=== PATIENT | male | born 1955 | race Caucasian/White ===

== ENCOUNTER → 2019-02-25 | Outpatient (CLI) | payer OTHER, SELFPAY ==
[2019-02-25 10:11] LABS: Absolute Neutrophil Count 5.6 X10^3/uL (2.0-7.7); Basophil# 0.04 X10^3/uL; Basophil% 0.5 % (0-1); Eosinophils% 1.2 % (0-5); Hemoglobin 16.5 g/dL (13.0-16.5); Lymphocyte % 23.8 % (19-41); Mean Corp Hgb Conc 33.7 g/dL (32-36); Mean Corpuscular Hgb 31.3 pg (27.0-32.0); Mean Corpuscular Volume 92.8 fL (80-94); Mean Platelet Vol. 10.3 fl (6.2-12.0); Monocyte# 0.67 X10^3/uL; NRBC Flagged by Analyzer 0 % (0-5); Neutrophil # 5.56 X10^3/uL (2.7-7.7); Neutrophil % 66.3 % (47-70); Platelet Count 286 K/mm3 (150-450); Red Blood Count 5.28 M/mm3 (4.6-6.2); White Blood Count 8.4 K/mm3 (4.4-11.0)
[2019-02-25 10:37] LABS: Microalbumin,Random Urine 9.1 mg/L (NO RANGE EST.); Microalbumin:Creatinine Ratio 4.7 mg/g CRE (<30 mg/g CRE)
[2019-02-25 10:50] LABS: ALB/GLOB Ratio 0.9 RATIO (0.9-2.4); AST(SGOT) 29 U/L (15-37); Alanine Aminotransfer ALT/SGPT 27 U/L (16-61); Albumin, Serum 3.9 g/dL (3.2-5.0); Alkaline Phosphatase 83 U/L (45-117); Anion Gap 3 (5-15); BUN 19 mg/dL (7-18); BUN/Creat Ratio 18.8 RATIO (10-20); Chloride 112 mmol/L (98-107); Cholesterol 173 mg/dL (200); Creatinine, Serum 1.01 mg/dL (0.70-1.30); EST Glomerular Filtration Rate 79 mL/min (>60); Est Glom Filt Rate - Afr Amer 95 mL/min (>60); Globulin 4.2 g/dL (2.2-4.2); Glucose 108 mg/dL (74-106); High Density Lipoprotein 44 mg/dL; PSA,Total - Annual Screen 0.48 ng/mL (0.00-4.00); Potassium 4.4 mmol/L (3.5-5.1); Protein, Total 8.1 g/dL (6.4-8.2); Sodium Level 138 mmol/L (136-145); Triglycerides 94 mg/dL; Very Low Density Lipoprotein 19 mg/dL (5-40)
[2019-02-28 15:07] LABS: Testosterone, Free 11.04 ng/dL (5.00-21.00)
[2019-03-01 10:14] LABS: Testosterone, % Free 2.61 % (1.50-4.20); Testosterone, Total 423 ng/dL (264-916)
== END | disposition home or self-care (01) ==
LOC: LAB 09:31
PROVIDERS: Family Provider Family Medicine; PCP Family Medicine; Referring Provider Family Medicine; Visit Provider Family Medicine
DX: Z00.00 Encounter for general adult medical examination without abnormal findings (principal); Z12.5 Encounter for screening for malignant neoplasm of prostate; N52.9 Male erectile dysfunction, unspecified; I10 Essential (primary) hypertension
CPT/HCPCS: 36415; 80053; 80061; 82043; 82570; 84153; 84402; 84403; 85025; G0103

== ENCOUNTER 2020-07-04 06:18 | Emergency (ER) | payer MEDICARE, SELFPAY ==
[2020-07-04 06:18] VITALS: BP 152/93; PULSE 92; RESP 18; TEMP 37.1; O2SAT 94; BMI 25.9
--- NOTE | 2020-07-04 06:27 | RAD_ITS ---
STUDY: X-RAY CHEST REASON FOR EXAM: Male, 65 years old patient with cough, fever and nausea for eight days TECHNIQUE: Single AP portable view of the chest. COMPARISON: 02/15/2013. FINDINGS: Cardiac monitoring leads are present. The lungs are underexpanded. There is patchy left basilar airspace consolidation suggesting pneumonia. There are prominent bronchovascular markings in both lungs. There is no demonstrated pleural abnormality. There is borderline cardiomegaly. Normal mediastinum and obdulio. Normal visualized pulmonary arteries. There is atherosclerotic calcification of the aortic arch with tortuosity. There are diffuse degenerative changes of the visualized thoracic spine. Normal visualized ribs, clavicles, and shoulders. There is no demonstrated abnormality of the visualized soft tissue structures of the upper abdomen. RAD/Chest 1 View (Portable) IMPRESSION: Left basilar airspace consolidation suggesting pneumonia. Electronically Signed: Rizwana Hoyos MD at 7:01 EST , Service support ,
--- NOTE | 2020-07-04 06:36 | ED.DCSUM_ITS ---
History of Present Illness Chief Complaint: General Illness Narrative: Patient presenting for evaluation secondary to generalized illness. Patient states that on Friday of this week he started to deal with generalized illness. He states that its been associated with a cough specifically on exertion. He denies any shortness of breath. He denies any productivity to this cough. He has been having subjective fevers, they have been somewhat alleviated by taking aspirin. He states that he has been having myalgias, and most recently developed nausea with vomiting and dry heaves. He denies significant diarrhea. He does reports that he potentially has some sick contacts. Denies any lung disease history. He does have a history of hypertension. Review of systems otherwise negative. Past Medical History - Allergies and Home Meds Allergies/Adverse Reactions: Allergies No Known Allergies Allergy (Verified 07/04/20 06:28) Primary Care Physician: Kenrick Coley DO [Primary Care Provider] - Prior records reviewed: Yes Past Medical History: - - Hypertension Lives: With Family Smoking Status: Never smoker Alcohol: None Drugs: None Review of Systems All systems negative except as indicated General: Reports: Fever, Malaise Eyes: Denies: Visual changes - bilaterally, Diplopia ENT: Denies: Rhinorrhea, Sore throat Cardiovascular: Denies: Chest pain, Palpitations Respiratory: Reports: Cough Gastrointestinal: Reports: Nausea, Vomiting Genitourinary: Denies: Dysuria, Hematuria, Frequency Musculoskeletal: Reports: Myalgias Skin: Denies: Rash, Wounds Neurological: Denies: Headache, Weakness, Numbness Physical Exam Vital Signs/Narrative: Vital Signs Temp Pulse Resp BP Pulse Ox 07/04/20 06:18 98.7 F 92 18 152/93 H 94 Inital Vital Signs reviewed: Yes General: Well nourished, Well developed, No Acute Distress Head: Normocephalic, Atraumatic Eyes: Perrl, EOMI ENT: No rhinorrhea, Dry mucous membranes Neck: Supple, Nontender Cardiovascular: Regular rate, Regular rhythm, No murmurs Respiratory: No distress, CTA bilaterally, Chest nontender, - - Patient is speaking in full sentences no evidence of respiratory discomfort Abdomen: Soft, Nontender, Nondistended, Normal bowel sounds Back: Nontender, Normal Inspection Extremities: Nontender, No edema Skin: Normal color, No rash, - - Skin is slightly hot to the touch Neurological: Alert, Oriented x3, Cranial nerves II-XII grossly intact, Normal Strength, Normal Sensation Psychological: Normal affect, Normal Mood Diagnostic/Tx/Re-eval Chest X-Ray - ED: 1 View, Read by ED Physician Clinical Impression(s) from Imaging Studies Chest X-Ray 07/04/20 06:27 IMPRESSION: Left basilar airspace consolidation suggesting pneumonia. Electronically Signed: Rizwana Hoyos MD at 7:01 EST , Service support , Laboratory Data 07/04/20 07/04/20 06:42 06:42 WBC 7.4 RBC 5.93 Hgb 17.9 H Hct 53.6 MCV 90.4 MCH 30.2 MCHC 33.4 RDW Std Deviation 42.1 RDW Coeff of Lev 12.6 Plt Count 224 MPV 10.0 Immature Gran % (Auto) 0.400 Neut % (Auto) 81.6 H Lymph % (Auto) 11.[address] [place] % (Auto) 6.6 Eos % (Auto) 0.0 Baso % (Auto) 0.3 Absolute Neuts (auto) 6.0 Absolute Lymphs (auto) 0.82 L Nucleated RBC % 0 Sodium 134 L Potassium 3.8 Chloride 105 Carbon Dioxide 21.0 Anion Gap 8 BUN 20 H Creatinine 0.96 Estim Creat Clear Calc 85.54 Est GFR (MDRD) Af Amer 101 Est GFR (MDRD) Non-Af 83 BUN/Creatinine Ratio 20.8 H Glucose 132 H Calcium 8.5 C-React Prot Ext Range 16.20 H - Medical Decision Making Patient presented secondary to generalized illness. He appears clinically dry, IV was established she was given Toradol, and a liter of IV fluids. CBC demonstrates some hemoconcentration with elevation of the patient's hemoglobin. Chemistry not significantly abnormal with normal renal function no significant electrolyte derangements. Mild elevation of the patient's CRP is noted. Chest x-ray 1 view by my personal review shows a left lower lobe infiltrate, this is agreed upon by radiology. Patient's coronavirus testing was noted to be positive. Ambulatory pulse ox shows the patient to only have pulse ox is around 91 to 92%. Patient is nontoxic-appearing, and not dyspneic. Given his unilateral infiltrate I will treat the patient for potential concomitant bacterial pneumonia with azithromycin. Patient meets treatment criteria for monoclonal antibody treatments, he was given referral to the infusion center. He will also be sent home with a course of Zofran to ensure that he stays well-hydrated. Patient understands signs and symptoms which to return. Patient was discharged in stable condition. ED Disposition - Plan for ED Patient: Disposition: Home or Assisted Living Diagnosis: COVID-19, Pneumonia Instructions: COVID-19: Lying in a Prone Position (Proning), Coronavirus Disease 2019 (COVID-19): Caring for Yourself or Others, ED Pneumonia (Adult) Prescriptions: Azithromycin [Zithromax Z-Alberto] 250 mg PO UD #1 box Prescription Printed Ondansetron [Zofran Odt] 4 mg PO Q8H PRN PRN #10 tab PRN Reason: Nausea Prescription Printed Referrals: Kenrick Coley DO [Primary Care Provider] - 1-2 Weeks
[2020-07-04] MEDS: Ondansetron 4 MG/2 ML Vial IV (06:39)
[2020-07-04] MEDS: 0.9% Normal Saline 1,000 ML 1000 ML IV (06:39)
[2020-07-04] MEDS: Ketorolac 15 MG/ML Vial IV (06:41)
[2020-07-04 06:47] LABS: Absolute Lymphocyte Count 0.82 X10^3/uL (0.83-4.51); Basophil# 0.02 X10^3/uL; Basophil% 0.3 % (0-1); Hematocrit 53.6 % (40-54); Hemoglobin 17.9 g/dL (13.0-16.5); Lymphocyte # 0.82 X10^3/ul (4.0); Lymphocyte % 11.1 % (19-41); Mean Corp Hgb Conc 33.4 g/dL (32-36); Mean Corpuscular Hgb 30.2 pg (27.0-32.0); Mean Corpuscular Volume 90.4 fL (80-94); Monocyte# 0.49 X10^3/uL; Monocyte% 6.6 % (0-10); NRBC Flagged by Analyzer 0 % (0-5); Neutrophil # 6.01 X10^3/uL (2.7-7.7); Neutrophil % 81.6 % (47-70); Platelet Count 224 K/mm3 (150-450); RBC Distribution Width CV 12.6 % (11.6-14.6); RBC Distribution Width SD 42.1 fl (35.1-43.9); Red Blood Count 5.93 M/mm3 (4.6-6.2); White Blood Count 7.4 K/mm3 (4.4-11.0)
[2020-07-04 07:07] VITALS: BP 158/86; PULSE 79; RESP 20; TEMP 37.9; O2SAT 94
[2020-07-04 07:08] LABS: Anion Gap 8 (5-15); BUN 20 mg/dL (7-18); BUN/Creat Ratio 20.8 RATIO (10-20); Calcium,Total 8.5 mg/dL (8.5-10.1); Chloride 105 mmol/L (98-107); Creatinine, Serum 0.96 mg/dL (0.70-1.30); EST Glomerular Filtration Rate 83 mL/min (>60); Est Glom Filt Rate - Afr Amer 101 mL/min (>60); Estimated Creatinine Clearance 85.54 ml/min; Glucose 132 mg/dL (74-106); Potassium 3.8 mmol/L (3.5-5.1); Sodium Level 134 mmol/L (136-145)
--- NOTE | 2020-07-04 07:34 | ED.RN ---
advised pt to begin looking for a ride.
[2020-07-04 08:38] VITALS: BP 104/79; PULSE 62; RESP 15; O2SAT 97
== END 2020-07-04 08:39 | disposition home or self-care (01) ==
PROVIDERS: Emergency Provider Emergency Medicine; PCP Family Medicine
DX: U07.1 COVID-19 (principal); J12.89 Other viral pneumonia; I10 Essential (primary) hypertension; Z79.899 Other long term (current) drug therapy
CPT/HCPCS: 36415; 71045; 80048; 85025; 86140; 87426; 96361; 96374; 96375; 99285; J7030; J2405

== ENCOUNTER → 2022-08-27 | Outpatient (CLI) | payer MEDICARE, SELFPAY ==
[2022-08-27 12:28] LABS: Absolute Lymphocyte Count 2.31 X10^3/uL (0.83-4.51); Absolute Neutrophil Count 4.9 X10^3/uL (2.0-7.7); Basophil# 0.06 X10^3/uL; Basophil% 0.7 % (0-1); Eosinophil# 0.24 X10^3/uL; Eosinophils% 2.9 % (0-5); Hematocrit 50.6 % (40-54); Hemoglobin 16.6 g/dL (13.0-16.5); Lymphocyte # 2.31 X10^3/ul (0.83-4.51); Lymphocyte % 28.1 % (19-41); Mean Corp Hgb Conc 32.8 g/dL (32-36); Mean Corpuscular Hgb 30.9 pg (27.0-32.0); Mean Corpuscular Volume 94.2 fL (80-94); Mean Platelet Vol. 11.2 fl (6.2-12.0); Monocyte% 8.5 % (0-10); NRBC Flagged by Analyzer 0 % (0-5); Neutrophil # 4.88 X10^3/uL (2.7-7.7); Neutrophil % 59.3 % (47-70); Platelet Count 284 K/mm3 (150-450); RBC Distribution Width CV 12.9 % (11.6-14.6); RBC Distribution Width SD 44.4 fl (35.1-43.9); Red Blood Count 5.37 M/mm3 (4.6-6.2); White Blood Count 8.2 K/mm3 (4.4-11.0)
[2022-08-27 13:05] LABS: AST(SGOT) 33 U/L (15-37); Alanine Aminotransfer ALT/SGPT 30 U/L (16-61); Albumin, Serum 3.9 g/dL (3.2-5.0); Alkaline Phosphatase 81 U/L (45-117); Anion Gap 8 (5-15); BUN 19 mg/dL (7-18); Calcium,Total 9.4 mg/dL (8.5-10.1); Chloride 109 mmol/L (98-107); Cholesterol 187 mg/dL (200); EST Glomerular Filtration Rate 79 mL/min (>60); Est Glom Filt Rate - Afr Amer 95 mL/min (>60); Globulin 3.8 g/dL (2.2-4.2); Glucose 106 mg/dL (74-106); High Density Lipoprotein 43 mg/dL; PSA,Total - Annual Screen 0.58 ng/mL (0.00-4.00); Potassium 4.5 mmol/L (3.5-5.1); Protein, Total 7.7 g/dL (6.4-8.2); Sodium Level 141 mmol/L (136-145); Triglycerides 132 mg/dL; Very Low Density Lipoprotein 26 mg/dL (5-40)
== END | disposition home or self-care (01) ==
LOC: BFHLAB 10:54
PROVIDERS: PCP Family Medicine; Visit Provider Family Medicine
DX: Z00.00 Encounter for general adult medical examination without abnormal findings (principal); Z12.5 Encounter for screening for malignant neoplasm of prostate; I10 Essential (primary) hypertension
CPT/HCPCS: 36415; 80053; 80061; 84153; 85025; G0103

== ENCOUNTER → 2023-08-28 | Outpatient (CLI) | payer MEDICARE, SELFPAY ==
--- OUTSIDE RECORDS SUMMARY | 2023-08-28 15:32 | XMS RPT_ITS | CCD ---
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 Name Role Phone GABRIEL BARRAGAN Attending Unavailable TEJ KNOWLES Primary Care Unavailable Problems Problem Classification Problem Date Documented Da te Episodic/Chronic Influenza (1 source) Influenza due to unidentified influenza virus with other respiratory manifestations; Translations: [Influenza] Onset: 07-24-2023 Episodic Results Test Name Value Interpretation Reference Range Facil ity Encounters Encounter Date Encounter Type Care Provider Facility Start: 07-24-2023 End: 07-24-2023 Emergency department patient visit GABRIEL BARRAGAN Facility:[facility] Summary Purpose Family History No Family History Records Found Advance Directives No Advanced Directives Records Found Additional Source Comments (unrecognized sect ion and content) No Status Records Found INFORMATION SOURCE (unrecogn ized section and content) FOR RECORDS PERTAINING TO PATIENTS WHO ARE OR HAVE BEEN ENROLLED IN A CHEMICAL DEPENDENCY/SUBSTANCEABUSE PROGRAM, SOME INFORMATION MAY BE OMITTED. This clinical summary was aggregated from multiple sources. Caution should be exercised in using it in the provision of clinical care. This summary normalizes information from multiple sources, and as a consequence, information in this document may materially change the coding, format and clinical context of patient data. In addition, data may be omitted in some cases. CLINICAL DECISIONS SHOULD BE BASED ON THE PRIMARY CLINICAL RECORDS. [email or web address] provides no warranty or guarantee of the accuracy or completeness of information in this document.
[2023-08-28 16:01] LABS: AST(SGOT) 37 U/L (15-37); Alanine Aminotransfer ALT/SGPT 32 U/L (16-61); Alkaline Phosphatase 83 U/L (45-117); Anion Gap 3 (5-15); BUN 16 mg/dL (7-18); Calcium,Total 9.9 mg/dL (8.5-10.1); Chloride 111 mmol/L (98-107); Cholesterol 192 mg/dL (200); EST Glomerular Filtration Rate 79 mL/min (>60); Est Glom Filt Rate - Afr Amer 95 mL/min (>60); Globulin 4.2 g/dL (2.2-4.2); Glucose 103 mg/dL (74-106); High Density Lipoprotein 41 mg/dL; PSA,Total - Annual Screen 0.66 ng/mL (0.00-4.00); Potassium 4.5 mmol/L (3.5-5.1); Protein, Total 8.2 g/dL (6.4-8.2); Sodium Level 138 mmol/L (136-145); Triglycerides 207 mg/dL; Very Low Density Lipoprotein 41 mg/dL (5-40)
[2023-09-05 08:11] LABS: Testosterone, % Free 1.79 % (1.50-4.20); Testosterone, Free 7.02 ng/dL (5.00-21.00); Testosterone, Total 392 ng/dL (264-916)
== END | disposition home or self-care (01) ==
LOC: BFHLAB 13:40
PROVIDERS: PCP Family Medicine; Visit Provider Family Medicine
DX: Z00.00 Encounter for general adult medical examination without abnormal findings (principal); Z12.5 Encounter for screening for malignant neoplasm of prostate; R53.83 Other fatigue; N52.9 Male erectile dysfunction, unspecified; I10 Essential (primary) hypertension
CPT/HCPCS: 36415; 80053; 80061; 84153; 84402; 84403; G0103

== ENCOUNTER → 2024-04-12 | Outpatient (CLI) | payer MEDICARE, SELFPAY ==
--- NOTE | 2024-04-12 14:00 | MRI_ITS ---
STUDY: MRI LUMBAR SPINE WITHOUT CONTRAST REASON FOR EXAM: Male, 69 years old. BILATERAL RADICULOPATHY TECHNIQUE: Standardized fat and water weighted pulse sequences were obtained in the sagittal and axial planes. COMPARISON: None FINDINGS: There is straightening of the normal lumbar lordosis. There is a levoscoliosis of the lumbar spine. Normal conus medullaris that terminates at the L1 level. No fracture or compression deformity is present. Simple moderate size left renal cyst measuring 5.33 cm is present and does not require any additional imaging or assessment. Several additional tiny cysts are present in both kidneys. T12-L1: Normal endplates. Diffuse disc desiccation. Normal disc height and morphology. Normal bilateral facet joints. Normal central canal and bilateral lateral recesses. Normal bilateral intervertebral neural foramina. L1-2: Normal endplates. Diffuse disc desiccation. Normal disc height and morphology. Normal bilateral facet joints. Normal central canal and bilateral lateral recesses. Normal bilateral intervertebral neural foramina. L2-3: Moderate disc space narrowing with diffuse disc desiccation and diffuse disc bulging/spur complex. Anterolisthesis of L2 on L3 of 3 mm. Severe disc space narrowing with flattening of the thecal sac due to severe facet joint and ligament of flavum hypertrophy. Right lateral recess stenosis with nerve root compression with superimposed right paracentral disc protrusion. Normal bilateral intervertebral neural foramina. L3-4: Mild to moderate disc space narrowing with posterior annular bulging. Mild to moderate facet joint hypertrophy. Mild central canal stenosis. Normal bilateral intervertebral neural foramina. L4-5: Moderate Modic endplate degenerative signal is present. Moderate to severe disc space narrowing with a diffuse disc osteophyte complex and right paracentral disc protrusion contributing to mild to moderate central canal stenosis and right lateral recess stenosis with nerve root compression. Mild facet joint hypertrophy. Normal left lateral recess severe right foraminal stenosis with nerve root compression with significant facet joint hypertrophy. Mild left foraminal stenosis. L5-S1: Moderate disc space narrowing with diffuse disc bulging/disc spur complex and superimposed midline shallow disc protrusion. Mild to moderate facet joint hypertrophy and mild bilateral foraminal stenosis. Normal central canal and bilateral lateral recesses. Normal visualized sacral ala. Normal visualized paraspinous soft tissue structures. MRI/Spine Lumbar (Routine) IMPRESSION: 1. Multilevel degenerative changes, as described above. Electronically Signed: Maninder Peres MD at 15:34 EDT ,
== END | disposition home or self-care (01) ==
PROVIDERS: PCP Family Medicine; Referring Provider Family Medicine; Visit Provider Family Medicine
DX: M48.061 Spinal stenosis, lumbar region without neurogenic claudication (principal)
CPT/HCPCS: 72148

== ENCOUNTER → 2025-01-03 | Outpatient (CLI) | payer MEDICARE, SELFPAY ==
[2025-01-03 19:03] LABS: Free T3 2.9 pg/mL (2.18-3.98); T3 Total - Triiodothyronine 0.91 ng/mL (0.80-2.00); T4 Total, Thyroxin 7.6 ug/dL (4.5-12.1); Vitamin B12 805 pg/mL (180-914)
== END | disposition home or self-care (01) ==
LOC: BFHLAB 14:31
PROVIDERS: PCP Family Medicine; Visit Provider Family Medicine
DX: G62.9 Polyneuropathy, unspecified (principal); E03.9 Hypothyroidism, unspecified; R73.01 Impaired fasting glucose
CPT/HCPCS: 36415; 82607; 83036; 84436; 84439; 84443; 84480; 84481; 84482

== ENCOUNTER 2025-01-17 14:00 | Outpatient (RCR) | payer MEDICARE, SELFPAY ==
--- NOTE | 2024-12-22 15:02 | HP.PTEVAL ---
Patient's Visit Information Visit Information Visit Information: SONNY PEÑA is a 69 year old M referred to Physical Therapy by Dr. Kiki Britt MD with a diagnosis of LBP. Date of Evaluation: 12/22/24 Physical Therapist: Chucho Cunningham, PT, ATC Visit Plan Frequency: 2-3x /Week Duration: 4 Weeks Plan: SKTC/DKTC, postural edu, core strengthening ex's, and HEP Subjective Subjective: Pt reports he has had LBP for greater than one year. Pt notes he had an MRI one year ago. Pt reports that revealed he has some bulging discs in his lumbar spine. Pt notes he has had PT at a different facility which did not help much. Pt reports he has had some pain shots, but the pain is still present. Pt reports he is here today to try and get some relief while he continues to get spinal injections. Pt reports his sx's today are very inconsistent. Pt notes he always feels good when he is sitting around and being a couch potato. Pt reports sometimes he has pain while he is up and walking, while other times he doesn't. Pt reports he has the most pain when he bends forwards and twists a lot. 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 Pt reports he gets a shooting jabbing pain in B LE's. Pt reports he is able to still do most of the activities he wants to, just more cautiously. 2/10 pain while sitting here at rest, 8/10 pain at worst. Pain LBP: Pain Intensity (Out of 10): 2 Pain Intensity Range: 8 Objective Objective: Neuro: B LE sensation is WNL to light touch MMT: R knee flex= 4-/5. All other B LE MMT is 5/5 throughout ROM: Pt is severely limited with lumbar extension ROM. All other ranges are WFL Repeated movements: RFIS 10x1 peripheralized. SINTIA 10x1 increased LBP. Prone prop progression NE. REIL 10x2 peripheralized sx's. SKTC/DKTC decreased pain. Balance/Special Test Scores Oswestry Low Back Score: 10 Goals Goal 1:: Decrease LBP x 50% to aid with sleep Goal Time Frame: 4-6 Weeks Goal 2:: Decrease the frequency and intensity of B LE radiculopathy x 50% to aid with ambulation Goal Time Frame: 4-6 Weeks Goal 3:: I with HEP Goal Time Frame: 4-6 Weeks Rehabilitation Potential Physical Therapy Diagnosis: Pt has LBP, R LE weakness, and limited L/S ROM secondary to Rehabilitation Potential: Good Anticipated Interventions Text: Thank you for the opportunity to evaluate your patient. For Medicare and Medicare HMO plans, please review the plan of care and approve it. It will need to be FAXED BACK to us at [phone] for Medicare purposes. For Medicare only, by signing this I certify the plan of care. Please let me know if there are questions or concerns regarding this plan of care. Physician Signature: Date:
--- NOTE | 2025-01-17 14:58 | HP.PTDCSUM ---
Discharge Summary D/C summary: It has been my pleasure to treat SONNY PEÑA referred by Dr. Kiki Britt MD, with the diagnosis of LBP for a total of 6 visit(s). Discharge Date: Please see the following information for a summary of their discharge status. Subjective Subjective: I really feel about the same. I am maybe a little better Pain LBP: Pain Intensity (Out of 10): 1 Overall Improvement % Improvement: 10 Objective Objective/Function: LBP ranges from 1-5/10 No LE radiculopathy at this time Pt is I with HEP Goals Goal 1:: Decrease LBP x 50% to aid with sleep Goal Progress: Not Progressing Goal 2:: Decrease the frequency and intensity of B LE radiculopathy x 50% to aid with ambulation Goal Progress: Goal Met Goal 3:: I with HEP Goal Progress: Goal Met Plan Plan: Discontinue secondary to lack of progress. Return to doctor D/C Information d/c sentence: If there are questions or concerns regarding this patient's physical therapy, please feel free to call me at [phone]. Thank you for the referral of this patient. Sincerely, Chucho Cunningham, PT, ATC Balance/Gait/Functional tests Balance/Special Test Scores Oswestry Low Back Score: 7 Improvement % Improvement: 10
== END 2025-01-17 19:00 | disposition home or self-care (01) ==
LOC: PT 14:00
PROVIDERS: PCP Family Medicine; Referring Provider Anesthesiology Pain Medicine; Visit Provider Anesthesiology Pain Medicine
DX: M54.9 Dorsalgia, unspecified (principal)
CPT/HCPCS: 97110; 97161; 97530

== ENCOUNTER → 2025-05-30 | Outpatient (CLI) | payer MEDICARE, SELFPAY ==
[2025-05-30 19:08] LABS: AST(SGOT) 33 U/L (<=37); Alanine Aminotransfer ALT/SGPT 28 U/L (<=46); Albumin, Serum 4.3 g/dL (3.4-4.8); Alkaline Phosphatase 86 U/L (40-129); Anion Gap 16 (5-15); BUN 21 mg/dL (4-19); BUN/Creat Ratio 21.4 RATIO (10-20); Calcium,Total 10.0 mg/dL (7.6-11.0); Carbon Dioxide 18.0 mmol/L (21.0-32.0); Chloride 106 mmol/L (98-108); Cholesterol 170 mg/dL (<=200); Free T3 5.5 pg/mL (2.18-3.98); Globulin 3.4 g/dL (2.2-4.2); Glucose 97 mg/dL (70-99); Low Density Lipoprotein Calc. 89 mg/dL; Potassium 4.9 mmol/L (3.3-5.1); Triglycerides 305 mg/dL; Very Low Density Lipoprotein 61 mg/dL (5-40); cholesterol:hdl ratio screen 5.59
== END | disposition home or self-care (01) ==
LOC: BFHLAB 14:21
PROVIDERS: PCP Family Medicine; Visit Provider Family Medicine
DX: E07.9 Disorder of thyroid, unspecified (principal); I10 Essential (primary) hypertension
CPT/HCPCS: 36415; 80053; 80061; 84439; 84443; 84481